=== PATIENT | male | born 1995 | race Caucasian/White ===

== ENCOUNTER 2023-06-10 03:35 | Inpatient (IN) | payer OTHER, SELFPAY ==
[2023-06-10] VITALS (19 sets, daily range): BP systolic 104–174; BP diastolic 70–111; BMI 34.8; BMI 33.5
--- NOTE | 2023-06-10 02:29 | ED.GENMED ---
History of Present Illness
General
Chief Complaint: Chest Pain
Source: patient and spouse
Time Seen by Provider: 06/10/23 02:15
Travel History
Have you had any contact with someone who has COVID-19?: No
Do you have any symptoms of coronavirus? Fever > 100 degrees, chills, cough, shortness of breath, sore throat, loss of taste or smell, muscle aches, or headache?: No
History of Present Illness
History of Present Illness:
28-year-old male presents to the emergency room complaining of heaviness/pain in his central chest. Pain radiates to his shoulders and back. Patient had some similar discomfort prior to going bed which evidently improved. However he was awoken
from sleep by the discomfort prompting him to come to the emergency room. Patient denies any known cardiac history. He denies the use of any stimulants such as cocaine, methamphetamines. He denies significant shortness of breath.
Phy Exam
Physical Exam
Physical Exam:
General: Awake, Alert, Oriented X3. No acute distress.
Vitals: Hypertensive
Head: Atraumatic
Eyes: Pupils equal, EOMI
Throat: Airway intact, no exudates
Neck: Trachea midline
Lungs: Clear and equal b/l
Heart: Regular rate, no murmurs
Abd: Soft, Nontender, No pulsatile mass
Neuro: Nonfocal
Skin: Warm, dry, no rash
Extremities: pulses equal b/l, no edema
Scores
Heart Score for Chest Pain Patients
STEMI patient?: Yes
Course
Orders/Labs/Results
Orders:
Orders
06/10/23 02:10
Electrocardiogram (*1) Urgent
Reason for Study: Chest Pain
EKG- Treatment ONCE
06/10/23 02:23
CMP [Comprehensive Metabolic Panel] Urgent
Complete Blood Count/With Diff Urgent
Troponin I Urgent
06/10/23 02:30
Electrocardiogram (*1) Urgent
Reason for Study: Chest Pain
EKG- Treatment ONCE
Abnormal Lab Results
06/10/23
02:23
MCH 31.8 H pg
(27.0-31.0)
MPV 10.6 H fL
(7.4-10.4)
Absolute Monos (auto) 0.9 H 10^3/uL
(0.1-0.6)
Monocytes % 9.7 H %
(1.7-9.3)
06/10/23 02:23
Vital Signs
Initial and Last Documented VS:
Initial Vital Signs
Temp Pulse Resp BP Pulse Ox
98.1 F 90 24 174/100 100
06/10/23 02:06 06/10/23 02:06 06/10/23 02:06 06/10/23 02:06 06/10/23 02:06
Last Documented Vital Signs
Temp Pulse Resp BP Pulse Ox
98.1 F 95 22 150/99 96
06/10/23 02:06 06/10/23 02:30 06/10/23 02:30 06/10/23 02:22 06/10/23 02:30
MDM/Problems Addressed
Differential Diagnosis Includes:
Acute NV, acute coronary syndrome, musculoskeletal chest pain, dehydration
*Pulse Oximetry
Patient hypoxic: no
*EKG
Interpreted by ED Provider?: Yes
Interpretation: abnormal
Ischemia: ST elevation (I, II, avl)
*Critical Care Note
Total Time (30-74mins, 75-104mins- exclusive of procedures): 31 min
comment:
Critical care statement: A total of 31 minutes of critical care time was provided for this patient. This includes management of unstable vital signs, evaluation of the patient at bedside, reviewing the patient's pertinent medical records, discussion
with consultants, review of old EKGs and review of pertinent medical records. This time with separate from time utilized to perform the aforementioned documented procedures
ED Attending Note
-
Portions of this chart may have been created with voice recognition software.� Occasional wrong word or��sound alike� substitutions may have occurred due to the inherent limitations of voice recognition software.
Discharge Plan
Departure
Patient Disposition: [employer] [employer]
Presentation/result/management discussed w/ accepting MD/DO: Dr Lacy
Condition: Serious
Discharge Problem:
Acute NV
Referrals:
Arlene Hope MD [Family Provider] -
Interventions
Interventions:
*Risk Screen - Suicide Last Done: 06/10/23 02:06
*General Assessment Last Done: 06/10/23 02:20
*Neglect/Abuse Screening Last Done: 06/10/23 02:06
ED- Fall Risk Assessment Last Done: 06/10/23 02:20
*ED COVID-19 Vaccine History Last Done: 06/10/23 02:20
*Nursing Disposition Last Done: 06/10/23 02:43
ED- Cardiac Assessment Last Done: 06/10/23 02:35
Discharge Date and Time
Discharge Date/Time: 06/10/23 02:43
[2023-06-10 02:34] LABS: % Basophils 0.5 % (0-2); % Eosinophils 2.3 % (0-6); % Immature Granulocytes 0.3 % (0-0.5); % Lymphocytes 31.4 % (20.5-51.1); % Monocytes 9.7 % (1.7-9.3); % Neutrophils 55.8 % (42.2-75.2); Absolute Basophils 0.1 10^3/uL (0-0.2); Absolute Eosinophils 0.2 10^3/uL (0-0.7); Absolute Lymphocytes 2.9 10^3/uL (1.2-3.4); Absolute Monocytes 0.9 10^3/uL (0.1-0.6); Absolute Neutrophils 5.2 10^3/uL (1.4-6.5); Hematocrit 48.9 % (39.0-52.0); Mean Corp Hgb Conc. 36.8 g/dL (33.0-37.0); Mean Corpuscular Hgb 31.8 pg (27.0-31.0); Mean Corpuscular Volume 86.4 fL (80.0-94.0); Mean Platelet Volume 10.6 fL (7.4-10.4); Nucleated Red Blood Cells % 0 % (-); Platelet Count 251 10^3/uL (130-400); Red Blood Cell Count 5.66 10^6/uL (4.70-6.10); Red Cell Dist. Width 12.6 % (11.5-14.5); White Blood Cell Count 9.2 10^3/uL (4.8-10.8)
--- NOTE | 2023-06-10 02:47 | HPS.HSE ---
Family Physician
-
Family Physician: Arlene Hope
Chief Complaint
-
Chest Pain.
History of Present Illness
28-year-old male tobacco user with ADHD and recent GI viral illness presents with several hours of chest pain. The patient had been experiencing some chest soreness as a result of his GI illness throughout the day yesterday. This pain intensified
approximately 1 hour before bedtime. The patient was able to go to sleep and awoke in the middle of the night with acutely worsened chest pain. In the emergency room, EKG shows high lateral ST elevations in 1 and aVL. STEMI was activated. He
received aspirin 324 and heparin. His chest pain is mildly improved.
Medical History
Past Medical History
Past Medical History: Reports GERD and Psychiatric (ADHD)
Past Surgical History: Reports None
Social History
Tobacco: Smoker
Alcohol: Occasional
Drug: None
Personal:
Living: With Family
Employment: Employed
Family History
Family History: Not pertinent
Allergies / Home Medications
Allergies reflects when Allergies were last updated in [employer].
Home Medications with original date entered in [employer]
Allergy/Medication List:
No current active medications.
No known drug allergies.
Review of Systems
-
History Source: Patient and Family
A 12 point ROS was completed and negative except as noted: Yes
Constitutional: Reports No Symptoms
EENT: Reports No Symptoms
Respiratory: Reports No Symptoms
Cardiac: Reports Chest Pain
Abdomen/GI: Reports See HPI
: Reports No Symptoms
Physical Exam
Vital Signs
Vital Signs
Temp Pulse Resp BP Pulse Ox
36.7 C 95 22 150/99 96
06/10/23 02:06 06/10/23 02:30 06/10/23 02:30 06/10/23 02:22 06/10/23 02:30
Physical Exam
General: Well Developed, Well Nourished, No Apparent Distress and Conversant
HEENT: NormoCephalic, Anicteric, Moist mucous membranes, Atraumatic, Good Dentition, PERRLA, No Ptosis, Nose Appears Normal and Ears Appear Normal
Respiratory: Clear
Cardiac: S1/S2 and Regular Rhythm
Breast: Deferred by me
GI: Soft, Non Tender, Non Distended and Normal Bowel Sounds
Rectal: Deferred by Provider
Genito-urinary: Deferred by me
Musculoskeletal: No Clubbing, No Cyanosis and No Edema
Skin: Warm and Dry
Neuro: AO x 3
Psych: Calm and Intact Judgment/Insight
Laboratory Results
-
06/10/23 02:23
Data Reviewed
-
Medical Tests (Nuc Med, Echo, EKG etc): Image Personally Visualized and interpreted and Report Reviewed by me
Lab Data: Labs Reviewed by me
Impression/Plan
-
Impression/Plan: 28-year-old male tobacco user with ADHD and GERD and recent viral illness presenting with acute onset chest pain and EKG changes concerning for ST elevation myocardial infarction.
#STEMI
-Plan for urgent cardiac catheterization for clarification of coronary anatomy.
-Risks and benefits explained to the patient.
-Consent is signed and on the chart.
-Further instructions to follow.
[2023-06-10 03:00] LABS: ALT (SGPT) 102 U/L (0-50); AST (SGOT) 66 U/L (17-59); Albumin 4.7 g/dl (3.5-5.0); Alkaline Phosphatase 70 U/L (38-126); Blood Urea Nitrogen 16 mg/dl (9-20); Calcium 9.6 mg/dl (8.4-10.2); Carbon Dioxide 31 mmol/L (22-30); Chloride 97 mmol/L (98-107); Estimated Creatinine Clearance > 125 ml/min; Glucose 131 mg/dl (70-99); Potassium 3.4 mmol/L (3.5-5.1); Sodium 139 mmol/L (135-145); Total Bilirubin 0.8 mg/dl (0.2-1.3); eGFR > 60.00
--- NOTE | 2023-06-10 03:29 | ITS.CL.CATH ---
Moving Consultant - Catheterization
Cardiac Catheterization
Procedure Report:
CARDIAC CATHETERIZATION REPORT
Date of Procedure: 06/10/2023
Referring: [facility] Emergency Room.
INDICATION: ST elevation myocardial infarction.
PROCEDURE:
1. Left heart catheterization.
2. Coronary angiography.
3. Left ventriculography.
ACCESS:
6 Icelandic right radial artery.
CATHETERS:
1. 5 Icelandic JR4.
2. 5 Icelandic JL 3.5.
3. 5 Icelandic angled pigtail catheter.
HEMODYNAMIC DATA
Weight (kg): 129.7
AO (s/d/x, mmHg): 132/97/115
LV (s/x mmHg): 132/15 (A wave to 26)
LEFT VENTRICULOGRAPHY: Performed in an JUAREZ projection. Normal left ventricular size with very mild hypokinesis of the distal anterior wall and globally preserved systolic function. Left ventricular ejection fraction is 55-60%. There is no mitral
valve regurgitation. There is no aortic valve insufficiency. The aortic root, ascending aorta and visualized ascending aorta appear normal.
CORONARY ANGIOGRAPHY
Dominance: Right.
Left Main: Large size, trifurcating vessel. There is no coronary artery disease.
LAD: Normal size vessel giving rise to 1 significant diagonal[address] down the cardiac silhouette, the LAD rapidly tapers after a small second diagonal with no visible vessel extending to the apex.
Ramus: Normal size vessel that bifurcates into 2 daughter branches. There is no coronary artery disease. The vessels are severely tortuous.
Circumflex: Normal size, nondominant vessel that gives rise to several small, diminutive marginals but primarily tracks in the atrioventricular groove. There is no coronary artery disease.
RCA: Large size, dominant vessel with a substantial posterolateral arcade. There is no coronary artery disease.
INTERVENTION(S)
None.
Closure Device: Vascular band.
Radiation (mGy): 513.81
DAP (cm2.Gy): 49.2590
Fluoroscopy time (minutes): 4.0
Sedation time (minutes): 19
CONCLUSIONS
1. Right dominant circulation with no visible atherosclerotic coronary artery disease but rapid tapering of the distal/apical LAD consistent with spontaneous coronary artery dissection given recent history of GI illness with nausea and vomiting.
2. Normal left ventricular size with very mild distal anterior/apical hypokinesis and globally preserved systolic function. LV ejection fraction 55-60%.
3. Mildly elevated filling pressures (LVEDP = 15 mmHg at 129.7 kg) with evidence of diastolic dysfunction (A wave to 26 mmHg).
RECOMMENDATIONS:
1. Expectant management after cardiac catheterization via right radial approach.
2. Limited weight bearing on the right wrist for one week.
3. Conservative management of distal LAD SCAD including heparin, beta-arely, aspirin and clopidogrel for 2-4 weeks, followed by aspirin for 1 year.
4. Echocardiogram ordered and pending.
5. Lipid panel ordered and pending.
6. Referral to cardiac rehab.
Copy to: Arlene Hope M.D.
Kboe Lacy DO, FACC, FACP
[2023-06-10] MEDS: KCL 40 MEQ PO (03:59)
[2023-06-10] MEDS: HEPARIN 25000 UNITS/250 ML IV ×2 (04:00→19:26)
--- NOTE | 2023-06-10 04:00 | PTCARENOTE ---
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 Right radial TR Band in place and post angiography protocol initiated. Pt AAOx3, at bedside. Pt denies any complaints of chest pain at this time. NSR on the monitor. POX 95% on RA. Lungs
course with scattered ex wheezes. Hyper bowel, round obese abd. Palpable peripheral pulses present. B/L AC int in place. Heparin gtt started per MD order @[id number] units/hr. PO KCL administered as ordered, see MAR. No issues to report at this time.
Regino at bedside to update pt and on plan of care moving forward. Will continue to monitor.
[2023-06-10 04:15] LABS: APTT 72.2 Sec (23.4-35.0)
[2023-06-10 04:22] LABS: Hemoglobin 15.8 g/dL (13.0-18.0); Mean Corp Hgb Conc. 36.7 g/dL (33.0-37.0); Mean Corpuscular Volume 87.2 fL (80.0-94.0); Mean Platelet Volume 10.9 fL (7.4-10.4); Platelet Count 210 10^3/uL (130-400); Red Blood Cell Count 4.93 10^6/uL (4.70-6.10); Red Cell Dist. Width 12.3 % (11.5-14.5)
[2023-06-10] MEDS: MAALOX 30 ML PO (05:13)
[2023-06-10] MEDS: NICODERM TRANSDERMAL 14 MG TRANSDERM ×2 (08:40)
[2023-06-10] MEDS: LOW STRENGTH ASPIRIN 81 MG PO (09:29)
[2023-06-10] MEDS: PLAVIX 75 MG PO (09:29)
[2023-06-10] MEDS: LOPRESSOR 25 MG PO ×2 (09:30→19:30)
[2023-06-10 09:53] LABS: Hematocrit 44.7 % (39.0-52.0); Hemoglobin 16.5 g/dL (13.0-18.0); Mean Corp Hgb Conc. 36.9 g/dL (33.0-37.0); Mean Corpuscular Hgb 31.9 pg (27.0-31.0); Mean Corpuscular Volume 86.3 fL (80.0-94.0); Mean Platelet Volume 10.8 fL (7.4-10.4); Platelet Count 231 10^3/uL (130-400); Red Blood Cell Count 5.18 10^6/uL (4.70-6.10); Red Cell Dist. Width 12.5 % (11.5-14.5); White Blood Cell Count 8.2 10^3/uL (4.8-10.8)
[2023-06-10 10:03] LABS: APTT 39.5 Sec (23.4-35.0)
[2023-06-10 10:36] LABS: Blood Urea Nitrogen 15 mg/dl (9-20); Carbon Dioxide 27 mmol/L (22-30); Chloride 100 mmol/L (98-107); Estimated Creatinine Clearance > 125 ml/min; Glucose 109 mg/dl (70-99); HDL Cholesterol 36 mg/dl; LDL Cholesterol, Calculated 80 mg/dl; Potassium 3.6 mmol/L (3.5-5.1); Sodium 137 mmol/L (135-145); Total Cholesterol 175 mg/dl (50-199); Triglyceride 295 mg/dl (10-149); Very Low Density Lipoprotein 59 mg/dl (0-30); eGFR > 60.00
--- NOTE | 2023-06-10 11:22 | CM ---
Reviewed chart. Met with Mr. Hansen to review discharge plans. He states prior to admission he resides withhis spouse, friend and friends daughter in a two story home with one step to enter. He states he has to go up a full flight of steps to get
to bedroom/full bathroom. He states he has a powder room on the first floor. He states prior to admission he was independent with ambulation and adls. He states he does not have any DME in the home. He states he has a prescription plan and uses
[facility]. Medical work-up in progress. The discharge plan is to return home with his spouse and friend when medically stable.
[2023-06-10] MEDS: NITROSTAT (SUBLINGUAL) 0.400000000000000022 MG SL (13:39)
--- NOTE | 2023-06-10 13:45 | PTCARENOTE ---
Pt c/o 'chest tightness/discomfort', rated 4 out of 10. BP 137/102, EKG obtained. Pt stated that his chest discomfort was now rated 5.5 out of 10. He stated that it was now 'throbbing chest pain. 1 sl Ntg given. 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 Will monitor.
--- NOTE | 2023-06-10 14:13 | W.PN.UPDATE ---
Update Note
Progress Note Update
I was alerted by nursing that patient having chest discomfort. EKG showed continued ST elevations, which look somewhat worse to my review. I assessed patient, who is in no distress, but confirms moderate chest tightness, which feels like his
presenting symptom. On exam, he has regular rhythm and rate and no murmurs or rubs, and clear lungs. Discussed with Dr. Lacy and nursing and will order nitro drip and PRN morphine.
[2023-06-10] MEDS: NITROGLYCERIN PREMIX 250 IV (14:15)
[2023-06-10] MEDS: TYLENOL 650 MG PO ×2 (15:39→22:58)
[2023-06-10 16:53] LABS: APTT 41.9 Sec (23.4-35.0)
--- NOTE | 2023-06-10 20:42 | SUR.PHASEI ---
assumed care of pt from previous shift RN, sinus rhythm on tele, VSS, + peripheral pulses, no edema noted, lungs clr on RN, pt denies CP or SOB, +bs, tolerating PO intake, voids spontaneously. PIV to left AC w heparin infusing at 1900 units/hr,
nitro infusing at 5mcg. plan of care reviewed w the pt and questions encouraged.
[2023-06-10 23:13] LABS: APTT 61.5 Sec (23.4-35.0)
[2023-06-11] VITALS (7 sets, daily range): BP systolic 111–141; BP diastolic 72–92
[2023-06-11 05:53] LABS: APTT 87.4 Sec (23.4-35.0)
[2023-06-11 06:19] LABS: Blood Urea Nitrogen 15 mg/dl (9-20); Calcium 8.7 mg/dl (8.4-10.2); Carbon Dioxide 27 mmol/L (22-30); Chloride 104 mmol/L (98-107); Estimated Creatinine Clearance > 125 ml/min; Glucose 104 mg/dl (70-99); Potassium 3.5 mmol/L (3.5-5.1); Sodium 135 mmol/L (135-145); eGFR > 60.00
[2023-06-11] MEDS: HEPARIN 25000 UNITS/250 ML IV (07:11)
--- NOTE | 2023-06-11 09:04 | W.PN.CD ---
Today's Communication / Plan
-
Echocardiogram.
DC heparin gtt.
Wean nitro gtt.
Reassess functional capacity.
Discharge planning (likely tomorrow).
Impression / Plan
-
Impression/Plan: 28 y/o male tobacco user with HLD (new diagnosis) and recent GI illness (diarrhea/nausea/vomiting) admitted with STEMI, found to have distal/terminal LAD SCAD.
#STEMI/SCAD
-Likely induced by wretching/high intrathoracic pressure.
-Troponin peaked at 10.7.
-LVGram shows normal systolic function, distal anterior wall/apical hypokinesis.
-No role for PCI.
-Conservative management with DAPT for one month, then aspirin daily.
-DC heparin gtt.
-Pain control with nitro gtt and morphine. Titrate nitro gtt off and reassess pain.
-Continue metoprolol.
-Echocardiogram ordered and pending.
#HLD/Hypertriglyceridemia
-New diagnosis.
-Total cholesterol = 175, LDL = 80, HDL = 36, Triglycerides = 295.
-Favor statin, possible icosapent ethyl.
#Tobacco abuse
-Chronic.
-Encouraged to quit.
#PPx
-SCD's for DVT/VTE.
-No role for PPI at this time.
#Dispo
-IVU status.
-Wean nitro gtt.
-Reassess functional capacity.
-Discharge planning (likely tomorrow).
Subjective/Interval History:
Developed chest pain yesterday, relieved with nitro gtt.
This morning, feels well.
Telemetry is benign.
DATA:
Cardiac Catheterization, 06/10/2023:
CONCLUSIONS
1.� Right dominant circulation with no visible atherosclerotic coronary artery disease but rapid tapering of the distal/apical LAD consistent with spontaneous coronary artery dissection given recent history of GI illness with nausea and vomiting.
2.� Normal left ventricular size with very mild distal anterior/apical hypokinesis and globally preserved systolic function.� LV ejection fraction 55-60%.
3.� Mildly elevated filling pressures (LVEDP = 15 mmHg at 129.7 kg) with evidence of diastolic dysfunction (A wave to 26 mmHg).
Physical Exam
Vital Signs/Labs
Vital Signs
Temp Pulse Resp BP Pulse Ox
36.8 C 73 20 111/77 93
06/11/23 07:58 06/11/23 08:00 06/11/23 07:58 06/11/23 08:00 06/11/23 07:58
06/09/23 06/10/23 06/11/23
11:59 11:59 11:59
Actual Weight 124.738 kg
06/10/23 09:32
06/11/23 05:29
APTT 87.4 Sec (23.4-35.0) H 06/11/23 05:29
Triglycerides 295 mg/dl (10-149) H 06/10/23 09:32
LDL Cholesterol, Calc 80 mg/dl 06/10/23 09:32
VLDL Cholesterol, Calc 59 mg/dl (0-30) H 06/10/23 09:32
HDL Cholesterol 36 mg/dl 06/10/23 09:32
LAB Results
06/10/23 06/10/23 06/10/23
02:23 09:32 16:27
Troponin I 4.570 H* 5.660 H* 10.700 H* D
06/10/23
22:54
Troponin I 9.690 H*
Physical Exam
Constitutional: No acute distress and Comfortable
EENT: Anicteric and Moist mucous membranes
Cardiovascular: Rhythm & rate is regular, Pedal edema is absent, JVD pressure is normal, S1S2 is normal and Murmur/rub/gallop absent
Respiratory: Respiratory effort normal, Lungs clear to auscul., Wheeze Absent and Crackles Absent
GI: Soft, Distention absent, Flat, Non tender and Normal bowel sounds
Neuro/Psych: AO x 3
Other: Cath Site (Right radial access site is C/D/I.)
Data Reviewed
-
Date of Service: June 11, 2023
Medical Decision Making: Reviewed Test Results, Independent Historian Assessment and Test Interpretation
EKG: Tracing Personally Visualized and interpreted and Report Reviewed by me
Medical Tests (PFT, Pathology etc): Image Personally Visualized and interpreted and Report Reviewed by me
Labs: Labs Reviewed by me
[2023-06-11] MEDS: PLAVIX 75 MG PO (09:19)
[2023-06-11] MEDS: LOW STRENGTH ASPIRIN 81 MG PO (09:19)
[2023-06-11] MEDS: LOPRESSOR 25 MG PO ×2 (09:19→19:54)
[2023-06-11] MEDS: NICODERM TRANSDERMAL 14 MG TRANSDERM (09:20)
--- NOTE | 2023-06-11 09:20 | CARDSERVLU ---
Echocardiogram with Lumason completed after protocol screening completed. Allergies verified.
Patent IV site: __Left arm 18 G PC___
IV site flushed with 0.9% NaCl pre and post administration.
Diluted bolus method utilized to enhance visualization of ventricular berg.
Total volume given: _4___ mL
Patient tolerated all procedures well without complications.
--- NOTE | 2023-06-11 09:50 | PTCARENOTE ---
Rec'd pt AAOx3, drowsy but easily arousable to voice. Pt w/no c/o CP or SOB. Heparin drip and Cardizem IV drips infusing as ordered. Pt reports being CP free overnight & VS Stable w/HR in 80's-90's, so Cardizem drip turned off. Pt asking about the
meds he take for ADHD. This RN to f/u w/attending. Pt w/call riley within reach & no addtl needs at this time. Plan of care ongoing.
--- NOTE | 2023-06-11 11:30 | PTCARENOTE ---
Pt continues w/no CP or SOB. Heparin drip discontinued as ordered by MD. Pt ambulating the rm & halls w/spouse. Plan of care ongoing.
[2023-06-11] MEDS: NON-FORMULARY ITEM 80 MG PO (14:00)
[2023-06-11] MEDS: NON-FORMULARY ITEM 10 MG PO (14:00)
--- NOTE | 2023-06-11 23:19 | PTCARENOTE ---
OOB in room most of the evening. Denied any complaints of pain or discomfort. SR on the monitor in the 70's to 90's.
[2023-06-12 03:15] VITALS: BP 109/70
[2023-06-12 04:49] LABS: Hematocrit 43.5 % (39.0-52.0); Hemoglobin 15.9 g/dL (13.0-18.0); Mean Corp Hgb Conc. 36.6 g/dL (33.0-37.0); Mean Corpuscular Volume 87.5 fL (80.0-94.0); Platelet Count 238 10^3/uL (130-400); Red Blood Cell Count 4.97 10^6/uL (4.70-6.10); Red Cell Dist. Width 12.4 % (11.5-14.5); White Blood Cell Count 8.6 10^3/uL (4.8-10.8)
[2023-06-12 05:16] LABS: Blood Urea Nitrogen 19 mg/dl (9-20); Carbon Dioxide 27 mmol/L (22-30); Chloride 102 mmol/L (98-107); Estimated Creatinine Clearance > 125 ml/min; Glucose 87 mg/dl (70-99); Potassium 3.7 mmol/L (3.5-5.1); Sodium 136 mmol/L (135-145); eGFR > 60.00
[2023-06-12 07:27] VITALS: BP 114/81
[2023-06-12] MEDS: NICODERM TRANSDERMAL 14 MG TRANSDERM (07:52)
[2023-06-12] MEDS: NON-FORMULARY ITEM 10 MG PO (07:53)
[2023-06-12] MEDS: NON-FORMULARY ITEM 80 MG PO (07:53)
[2023-06-12] MEDS: LOW STRENGTH ASPIRIN 81 MG PO (07:54)
[2023-06-12] MEDS: LOPRESSOR 25 MG PO (07:54)
[2023-06-12] MEDS: PLAVIX 75 MG PO (07:55)
--- NOTE | 2023-06-12 09:03 | W.PN.CD ---
Today's Communication / Plan
-
d/c today
Impression / Plan
-
Impression/Plan: 28 y/o male tobacco user with HLD (new diagnosis) and recent GI illness (diarrhea/nausea/vomiting) admitted with STEMI, found to have distal/terminal LAD SCAD.
#STEMI/SCAD
-Likely induced by wretching/high intrathoracic pressure.
-Troponin peaked at 10.7.
-LVGram shows normal systolic function, distal anterior wall/apical hypokinesis.
-No role for PCI.
-Conservative management with DAPT for one month, then aspirin daily.
-CP free
-Continue metoprolol.
-Echocardiogram below
#HLD/Hypertriglyceridemia
-New diagnosis.
-Total cholesterol = 175, LDL = 80, HDL = 36, Triglycerides = 295.
-Favor statin, possible icosapent ethyl.
#Tobacco abuse
-Chronic.
-Encouraged to quit.
#PPx
-SCD's for DVT/VTE.
-No role for PPI at this time.
#Dispo
-CP free d/c today
Subjective/Interval History:
Developed chest pain yesterday, relieved with nitro gtt.
This morning, feels well.
Telemetry is benign.
DATA:
Cardiac Catheterization, 06/10/2023:
CONCLUSIONS
1.� Right dominant circulation with no visible atherosclerotic coronary artery disease but rapid tapering of the distal/apical LAD consistent with spontaneous coronary artery dissection given recent history of GI illness with nausea and vomiting.
2.� Normal left ventricular size with very mild distal anterior/apical hypokinesis and globally preserved systolic function.� LV ejection fraction 55-60%.
3.� Mildly elevated filling pressures (LVEDP = 15 mmHg at 129.7 kg) with evidence of diastolic dysfunction (A wave to 26 mmHg).
TTE: CONCLUSIONS
�Normal LV size and function with no regional wall motion abnormalities.
�LV EF is 55 to 60% by visual assessment.
�No LVH.
�Normal diastolic function.
�No significant valvular disease.
�No prior study available for comparison.
Physical Exam
Vital Signs/Labs
Vital Signs
Temp Pulse Resp BP Pulse Ox
97.7 F 75 20 114/81 96
06/12/23 07:24 06/12/23 07:54 06/12/23 07:24 06/12/23 07:54 06/12/23 07:24
06/12/23 03:57
06/12/23 03:57
APTT Cancelled 06/11/23 11:30
Triglycerides 295 mg/dl (10-149) H 06/10/23 09:32
LDL Cholesterol, Calc 80 mg/dl 06/10/23 09:32
VLDL Cholesterol, Calc 59 mg/dl (0-30) H 06/10/23 09:32
HDL Cholesterol 36 mg/dl 06/10/23 09:32
LAB Results
06/10/23 06/10/23 06/10/23
02:23 09:32 16:27
Troponin I 4.570 H* 5.660 H* 10.700 H* D
06/10/23
22:54
Troponin I 9.690 H*
Physical Exam
Constitutional: No acute distress
EENT: Anicteric
Cardiovascular: Rhythm & rate is regular and Pedal edema is absent
Respiratory: Respiratory effort normal and Lungs clear to auscul.
GI: Soft
Neuro/Psych: AO x 3
Data Reviewed
-
Date of Service: June 12, 2023
EKG: Tracing Personally Visualized and interpreted
Echo: Tracing Personally Visualized and interpreted
Labs: Labs Reviewed by me
--- NOTE | 2023-06-12 09:38 | W.DS.TRANS ---
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
-
Discharge Instructions:
Discharge Diagnosis/Procedures STEMI
Spontaneous coronary artery dissection
Diet Low Cholesterol
Activity No strenuous activity
Additional Activity See attached instructions.
Driving Restrictions No driving for 24 hours
Bathing Restrictions None
Other Services Cardiac Rehab
Instructions:
Stand-Alone Forms: DC Instructions- Cath/EP Lab
Changes to Home Medications: Yes
Discharge Medications:
DC Medications w/original date entered in [employer]
atomoxetine 10 mg capsule 80 mg PO Daily ADHD 06/10/23
vilazodone 10 mg tablet 10 mg PO DAILY Depression 06/10/23
acetaminophen 325 mg tablet 650 mg PO Q4HPRN PRN mild pain #30 tabs 06/12/23
aspirin 81 mg chewable tablet (Children's Aspirin) 81 mg PO DAILY 90 days #90 tabs 06/12/23
atorvastatin 20 mg tablet 20 mg PO QPM #90 tabs 06/12/23
clopidogrel 75 mg tablet 75 mg PO DAILY #30 tabs 06/12/23
metoprolol tartrate 25 mg tablet 25 mg PO BID #60 tabs 06/12/23
Home Medication Changes
No medications were stopped.
Metoprolol, ASA, clopidogrel are NEW.
Pending Results: No
--- NOTE | 2023-06-12 11:27 | PTCARENOTE ---
D/C instructions given to patient and , both verbalizes understanding. INT D/C'de, telemetry D/C'd, personal belongings packed and snet home with patient. D/C to home via wc accompanied by staff.
== END 2023-06-12 13:45 | disposition home or self-care (01) | DRG 280 ==
LOC: IVU 03:35
PROVIDERS: Hospitalist; Physician Assistant Medical; ADMITTING PHYSICIAN Internal Medicine Cardiovascular Disease; EMERGENCY PHYSICIAN Emergency Medicine; FAMILY PHYSICIAN Internal Medicine
PROC: B2111ZZ Fluoroscopy of Multiple Coronary Arteries using Low Osmolar Contrast (ICD-10-PCS; 2023-06-10)
PROC: B2151ZZ Fluoroscopy of Left Heart using Low Osmolar Contrast (ICD-10-PCS; 2023-06-10)
PROC: 4A023N7 Measurement of Cardiac Sampling and Pressure, Left Heart, Percutaneous Approach (ICD-10-PCS; 2023-06-10)
DX: I21.3 ST elevation (STEMI) myocardial infarction of unspecified site (principal); I25.42 Coronary artery dissection; I10 Essential (primary) hypertension; E78.1 Pure hyperglyceridemia; F17.210 Nicotine dependence, cigarettes, uncomplicated; I25.10 Atherosclerotic heart disease of native coronary artery without angina pectoris
CPT/HCPCS: 80048; 80053; 80061; 84484; 85025; 85027; 85730; 93005; 93306; 93458; 99291; C1894; Q9950; Q9967

== ENCOUNTER 2023-08-28 17:35 | Outpatient (RCR) | payer OTHER, SELFPAY | END 2023-08-28 23:59 | disposition home or self-care (01) | LOC: CRHB 17:35 | PROVIDERS: ATTENDING PHYSICIAN Internal Medicine Cardiovascular Disease | DX: I21.01 ST elevation (STEMI) myocardial infarction involving left main coronary artery (principal) | CPT/HCPCS: 93797; 93798 ==

== ENCOUNTER 2023-09-25 17:39 | Outpatient (RCR) | payer OTHER, SELFPAY | END 2023-09-25 23:59 | disposition home or self-care (01) | LOC: CRHB 17:39 | PROVIDERS: ATTENDING PHYSICIAN Internal Medicine Cardiovascular Disease; FAMILY PHYSICIAN Internal Medicine | DX: I21.01 ST elevation (STEMI) myocardial infarction involving left main coronary artery (principal) | CPT/HCPCS: 93798 ==

== ENCOUNTER 2023-10-02 17:50 | Outpatient (RCR) | payer BC, SELFPAY | END 2023-10-02 23:59 | disposition home or self-care (01) | LOC: CRHB 17:50 | PROVIDERS: ATTENDING PHYSICIAN Internal Medicine Cardiovascular Disease; FAMILY PHYSICIAN Internal Medicine | DX: I21.01 ST elevation (STEMI) myocardial infarction involving left main coronary artery (principal) | CPT/HCPCS: 93798 ==

== ENCOUNTER → 2023-12-15 09:01 | Outpatient (REF) | payer BC, SELFPAY ==
[2023-12-15 10:55] LABS: ALT (SGPT) 48 U/L (0-50); AST (SGOT) 27 U/L (17-59); HDL Cholesterol 42 mg/dl; LDL Cholesterol, Calculated 83 mg/dl; Total Cholesterol 149 mg/dl (50-199); Triglyceride 120 mg/dl (10-149); Very Low Density Lipoprotein 24 mg/dl (0-30)
== END ==
LOC: REG 09:01
PROVIDERS: ATTENDING PHYSICIAN Nurse Practitioner
DX: E78.5 Hyperlipidemia, unspecified (principal)
CPT/HCPCS: 36415; 80061; 84450; 84460

== ENCOUNTER → 2024-06-15 14:24 | Outpatient (REF) | payer BC, SELFPAY ==
[2024-06-15 15:54] LABS: ALT (SGPT) 68 U/L (0-50); AST (SGOT) 30 U/L (17-59); HDL Cholesterol 44 mg/dl; LDL Cholesterol, Calculated 58 mg/dl; Total Cholesterol 135 mg/dl (50-199); Triglyceride 166 mg/dl (10-149); Very Low Density Lipoprotein 33 mg/dl (0-30)
== END ==
LOC: REG 14:24
PROVIDERS: ATTENDING PHYSICIAN Nurse Practitioner Gerontology
DX: E78.5 Hyperlipidemia, unspecified (principal)
CPT/HCPCS: 36415; 80061; 84450; 84460

== ENCOUNTER → 2024-12-13 08:40 | Outpatient (REF) | payer BC, SELFPAY ==
[2024-12-13 10:02] LABS: Hematocrit 46.4 % (39.0-52.0); Hemoglobin 16.3 g/dL (13.0-18.0); Mean Corp Hgb Conc. 35.1 g/dL (33.0-37.0); Mean Corpuscular Volume 88.9 fL (80.0-94.0); Nucleated Red Blood Cells % 0 % (-); Platelet Count 301 10^3/uL (130-400); Red Cell Dist. Width 12.9 % (11.5-14.5)
[2024-12-13 11:06] LABS: ALT (SGPT) 82 U/L (0-50); AST (SGOT) 34 U/L (17-59); Albumin 4.8 g/dl (3.5-5.0); Alkaline Phosphatase 83 U/L (38-126); Blood Urea Nitrogen 21 mg/dl (9-20); Calcium 9.4 mg/dl (8.4-10.2); Carbon Dioxide 25 mmol/L (22-30); Chloride 103 mmol/L (98-107); Glucose 101 mg/dl (70-99); HDL Cholesterol 49 mg/dl; LDL Cholesterol, Calculated 73 mg/dl; Potassium 4.4 mmol/L (3.5-5.1); Sodium 138 mmol/L (135-145); Total Protein 7.7 g/dl (6.3-8.2); Very Low Density Lipoprotein 20 mg/dl (0-30); eGFR > 60.00
== END ==
LOC: REG 08:40
PROVIDERS: ATTENDING PHYSICIAN Internal Medicine Cardiovascular Disease; FAMILY PHYSICIAN Physician Assistant Medical
DX: I25.42 Coronary artery dissection (principal); E78.2 Mixed hyperlipidemia; Z72.0 Tobacco use; R74.01 Elevation of levels of liver transaminase levels
CPT/HCPCS: 36415; 80053; 80061; 84443; 85025